=== PATIENT | male | born 1940 | race Caucasian/White ===

== ENCOUNTER 2021-06-04 11:15 | Emergency (ER) | payer OTHER ==
[~2021-06-04] VITALS: Ht 177.8 cm; Wt 78.0 kg
[2021-06-04] MEDS ORDERED: LEVO-T25 MCG PO (11:39)
[2021-06-04] MEDS ORDERED: TRANDATE 200 M200 M1 PO (11:39)
[2021-06-04] MEDS ORDERED: VITAMIN C100 MG PO (11:39)
[2021-06-04 14:26] LABS: INFLUENZA A ANTIGEN Negative (Negative); INFLUENZA B ANTIGEN Negative (Negative)
--- NOTE | 2021-06-04 14:31 | EKG ---
[place] [address] ELECTROCARDIOGRAM REPORT Name: STARNEREYDA Musa Room: [facility]#: [id number] Admission: 06/04/21 Attend Phys: Discharge: Date of : 42 Date of Service: 06/04/21 1401 Report #: [id number] THIS REPORT FOR: //name// [facility] ED Test Date: 2021-06-04 Test Time: 14:01:29 Pat Name: NEREYDA GRAVES Department: Room: Gender: Explosive Expert: [facility] : 1940 Requested By: Celeste Ellison Order Number: [id number] MD: Josh Lara Measurements Intervals [place] Rate: 69 P: 65 WA: 199 QRS: 70 QRSD: 96 T: 63 QT: 416 QTc: 446 Interpretive Statements Sinus rhythm Minimal ST elevation, anterior leads Baseline wander in lead(s) V2 No previous ECG available for comparison Electronically Signed On 06-04-2021 14:31:35 FLOORING HELPER by Josh Lara [email or web address] <ELECTRONICALLY SIGNED> By: Josh Lara MD, [facility] 06/04/21 1431 00 00 Josh Lara MD, [facility] /EPI
[2021-06-04 15:24] LABS: HEMATOCRIT 42.2 % (42.0-52.0); HEMOGLOBIN 14.5 gm/dL (14.0-18.0); MCH 30.1 pg (26.0-34.0); MCHC 34.4 g/dL (28.0-37.0); MCV 87.3 fL (80.0-100.0); MPV 9.2 fl. (7.2-11.1); NUCLEATED RBCS 0 /100WBC; PLATELET COUNT* 156 thou/uL (150-400); RBC 4.84 mil/uL (4.50-6.00); RDW-CV 12.9 % (10.5-14.5); WBC 8.3 thou/uL (4.0-11.0)
[2021-06-04 15:29] LABS: CALCIUM 8.8 mg/dL (8.5-10.1); CREATININE 1.7 mg/dL (0.6-1.3); POTASSIUM 4.5 mmol/L (3.5-5.1)
[2021-06-04 15:34] LABS: ALBUMIN 3.8 g/dL (3.4-5.0); TOTAL BILIRUBIN 1.8 mg/dL (<0.1-1.0); TOTAL PROTEIN 7.7 g/dL (6.4-8.2)
[2021-06-04 15:47] LABS: URINE BILIRUBIN NEGATIVE (Negative); URINE BLOOD NEGATIVE (Negative); URINE CLARITY CLEAR; URINE COLOR YELLOW; URINE GLUCOSE-RANDOM NEGATIVE (Negative); URINE KETONES 1+ (Negative); URINE LEUKOCYTES-REFLEX NEGATIVE (Negative); URINE NITRITE-REFLEX NEGATIVE (Negative); URINE PROTEIN TRACE (Negative); URINE SPECIFIC GRAVITY >= 1.030 (1.005-1.030); URINE UROBILINOGEN 0.2 E.U./dl (0.2-1.0)
[2021-06-04 16:26] LABS: ABSOLUTE EOSINOPHILS 0.1 thou/uL (0.0-0.7); ABSOLUTE LYMPHOCYTES 0.2 thou/uL (0.8-5.3); ABSOLUTE MONOCYTES 0.7 thou/uL (0.0-1.2); ABSOLUTE NEUTROPHILS 7.2 thou/uL (1.6-8.1); PLATELET ESTIMATE ADEQUATE
[2021-06-04] MEDS ORDERED: ULTRA-LIGHT RO1 EACH MISCELL (17:23)
[2021-06-04] MEDS ORDERED: CANE MISCELL (17:23)
[2021-06-04 17:46] VITALS: BP 145/74
== END 2021-06-04 17:49 | disposition home or self-care (01) ==
LOC: M.ERS 11:15
PROVIDERS: Nurse Practitioner Family
DX: U07.1 COVID-19 (principal); R94.4 Abnormal results of kidney function studies; I10 Essential (primary) hypertension; E03.9 Hypothyroidism, unspecified; M06.9 Rheumatoid arthritis, unspecified; Z85.028 Personal history of other malignant neoplasm of stomach; Z79.899 Other long term (current) drug therapy